=== PATIENT | female | born 1995 | race Two or more races ===

== ENCOUNTER 2024-10-15 21:49 | Inpatient (IN) | payer OTHER ==
[~2024-10-15] VITALS: Ht 162.6 cm; Wt 76.5 kg
--- NOTE | 2024-10-15 22:12 | ED.PDOC ---
History of Present Illness HPI Comments 29 y/o wheelchair-bound female is SHERI with c/o neck pain, today. Per EMS report, patient had just returned home from her routine physical therapy appointment when she had sudden and unprovoked onset of neck pain, this evening. Patient also complains of being febrile, lately, as well. Her vitals were noted to have been stable and within normal parameters, with exception of a pulse rate in the 130's range. At time of assessment, patient reports no recent injuries, stressors, strenuous activities, or additional significant medical or surgical history, with exception of possible multiple scoliosis that is still being ruled out, currently. She also is unable to elaborate on reason on why she is wheelchair-bound, currently, at initial encounter. Patient denies any vision or speech changes, headaches, dizziness, numbness, tingling, or other associated symptoms or modifiers at this time. Chief Complaint: Neck Pain Time Seen by MD: 22:00 Reviewed Notes: Nurses Notes, Rivet Spinner Notes, Medications, Allergies Allergies: Coded Allergies: NO KNOWN ALLERGIES (Unverified , 10/15/24) Information Source: Patient, Emergency Med Personnel Mode of Arrival: EMS Severity: Moderate Timing: Hours Duration: Since onset Prehospital treatment: 12 Lead EKG, Venetian Blind Maker Past Medical History PAST MEDICAL HISTORY: Denies Surgical History: Denies all surgeries WATCH GUARD GATE History: Denies all WATCH GUARD GATE Hx Family History Family History: Unknown Social History Smoker: Non-Smoker Alcohol: Denies ETOH Use Drugs: Denies Drug Use Lives In: Home Other wheel-chair bound All Other Systems: Reviewed and Negative (Comprehensive systems review obtained and negative except for what is stated in the HPI.) Physical Exam General Appearance: No Apparent Distress, Normal, Other (wheelchair bound ) HEENT: Normal ENT Inspection, Pharynx Normal, TMs Normal Neck: Full Range of Motion, Normal, Normal Inspection, Other (right-neck tenderness ) Respiratory: Chest Non-Tender, Lungs Clear, No Accessory Muscle Use, No Respiratory Distress, Normal Breath Sounds Cardiovascular: No Edema, No JVD, No Murmur, No Gallop, Normal Peripheral Pulses, Regular Rate/Rhythm Breast Exam: Deferred Gastrointestinal: No Organomegaly, Non Tender, No Pulsatile Mass, Normal Bowel Sounds, Soft Genitalia: Deferred Pelvic: Deferred Rectal: Deferred Extremities: No calf tenderness, Normal capillary refill, Normal inspection, Normal range of motion, Non-tender, No pedal edema Musculoskeletal : Apperance: Normal Neurologic: Alert, career based intervention coordinator II-XII nml as Tested, No Motor Deficits, Normal Affect, Normal Mood, No Sensory Deficits Cerebellar Function: Normal Reflexes: Normal Skin: Dry, Normal Color, Warm Lymphatic: No Adenopathy Was a procedure done? Was a procedure done?: No Differential Dx Considerations may include: musculoskeletal pain, dislocation, fractures, contusion, DDD, among others X-Ray, Labs, Meds, VS Vital Signs Date Time Temp Pulse Resp B/P (MAP) Pulse Ox O2 Delivery O2 Flow Rate FiO2 10/16/24 03:00 91 17 99/67 (78) 96 10/16/24 01:00 98.4 119 18 138/86 (103) 97 98.4 10/15/24 23:10 99.5 10/15/24 23:00 99.5 101 19 118/84 (95) 96 99.5 10/15/24 23:00 101 19 96 Room Air* 0 21 10/15/24 21:59 100.8 115 20 116/83 (94) 96 100.8 Lab Test 10/16/24 01:24 10/15/24 22:55 10/15/24 22:14 Range/Units Urine Color Light-orange Yellow Urine Clarity Ex.turbid Clear Urine pH 7.0 5.0-9.0 Urine Specific [place] 1.017 1.001-1.035 Urine Protein 1+ H Negative Urine Ketones 1+ H Negative Urine Blood Negative Negative /uL Urine Nitrite 1+ H Negative Urine Bilirubin Negative Negative Urine Urobilinogen Normal Negative mg/dL Urine Leukocyte Esterase 3+ Negative /uL Urine RBC 8 0 - 4 /hpf Urine Microscopic WBC 119 H 0-5 /HPF Urine Squamous Epithelial Cells None seen <5 /hpf Urine Triple Phosphate Crystals Mod None Seen /hpf Urine Amorphous Crystals Few None Seen /hpf Urine Bacteria Many H None Seen /hpf Urine Mucus Few None Seen Urine Glucose Normal Normal mg/dL Lactic Acid Level 1.0 0.4-2.0 mmol/L White Blood Count 24.3 H 4.4-10.8 10^3/uL Red Blood Count 4.82 4.0-5.20 10^6/uL Hemoglobin 13.3 12.2-16.2 g/dL Hematocrit 40.0 36.0-46.0 % Mean Corpuscular Volume 83.0 80.0-100.0 fL Mean Corpuscular Hemoglobin 27.6 L 28.0-32.0 pg Mean Corpuscular Hemoglobin Concent 33.3 32.0-36.0 g/dL Red Cell Distribution Width 12.9 11.8-14.3 % Platelet Count 302 140-450 10^3/uL Mean Platelet Volume 7.1 6.9-10.8 fL Neutrophils (%) (Auto) 95.1 H 37.0-80.0 % Lymphocytes (%) (Auto) 1.3 L 10.0-50.0 % Monocytes (%) (Auto) 3.5 0.0-12.0 % Eosinophils (%) (Auto) 0.0 0.0-7.0 % Basophils (%) (Auto) 0.1 0.0-2.0 % Neutrophils # (Auto) 23.1 H 1.6-8.6 10 ^3/uL Lymphocytes # (Auto) 0.3 L 0.4-5.4 10 ^3/uL Monocytes # (Auto) 0.8 0-1.3 10 ^3/uL Eosinophils # (Auto) 0 0-0.8 10 ^3/uL Basophils # (Auto) 0 0-0.2 10 ^3/uL Nucleated Red Blood Cells 0.0 % Sodium Level 142 136-145 mmol/L Potassium Level 4.0 3.5-5.1 mmol/L Chloride Level 107 98-107 mmol/L Carbon Dioxide Level 23 20-31 mmol/L Anion Gap 12 5-15 Blood Urea Nitrogen 11 9-23 mg/dL Creatinine 0.75 0.550-1.02 mg/dL Glomerular Filtration Rate Calc 110 >90 mL/min BUN/Creatinine Ratio 14.7 10.0-20.0 Serum Glucose 116 H 74-106 mg/dL Calcium Level 9.3 8.7-10.4 mg/dL Current Medications Medications (Trade) Dose Ordered Sig/Johana Route Start Time Stop Time Status Last Admin Sodium Chloride 1,000 ml @ 1,000 mls/hr Q1H ONCE IV 10/15/24 22:15 10/15/24 23:14 DC 10/15/24 23:11 Diazepam (Valium Tablet) 2 mg ONCE ONCE PO 10/15/24 22:15 10/15/24 22:16 DC 10/15/24 23:10 Acetaminophen (Tylenol Tablet) 650 mg ONCE ONCE PO 10/15/24 22:15 10/15/24 22:16 DC 10/15/24 23:10 Sodium Chloride 1,000 ml @ 1,000 mls/hr Q1H ONCE IV 10/15/24 23:00 10/16/24 00:58 DC 10/15/24 23:15 Vancomycin HCl 200 ml @ 200 mls/hr ONCE ONCE IV 10/15/24 23:00 10/16/24 00:58 DC 10/15/24 23:09 Time of 1ST Reevaluation: 22:30 Reevaluation 1ST: Unchanged Patient Education/Counseling: Diagnosis, Treatment Family Education/Counseling: No Family Present Additional Information Previous visit documents reviewed: n/a The following tests were ordered, and results were reviewed by me: CBC, BMP Additional Information was gathered from interviewing the following independent historians: EMS I reviewed and agreed with the following test results read by other providers: n/a I discussed treatment and results with medical personnel and: Patient Departure 1 Departure Time of Disposition: 04:16 (Patient presenting with signs symptoms concerning for sepsis. In my judgment the patient is not meningitic. We will empirically cover patient with fluids and antibiotics and admit patient for further workup and expert consultation) Impression: Primary Impression: Sepsis Qualified Codes: A41.9 - Sepsis, unspecified organism Additional Impression: Generalized weakness Disposition: 09 ADMITTED INPATIENT Admit to: Med Surg Condition: Serious Critical Care Note Critical Care Time?: No Stability Stability form required: No Heart Score Heart Score: Heart Score Response (Comments) Value History N/A 0 EKG N/A 0 Age N/A 0 Risk Factors N/A 0 Troponin N/A 0 Total 0 I personally scribed for NOA LYNNE MD ([email or web address]) on 10/15/24 at 22:12. Electronically submitted by Geoff Garcia [email or web address]). NOA LYNNE MD Oct 15, 2024 22:12
[2024-10-15 22:29] LABS: Basophils # (auto) 0 10 ^3/uL (0-0.2); Basophils % (auto) 0.1 % (0.0-2.0); Eosinophils # (auto) 0 10 ^3/uL (0-0.8); Hemoglobin 13.3 g/dL (12.2-16.2); Lymphocytes # (auto) 0.3 10 ^3/uL (0.4-5.4); Lymphocytes % (auto) 1.3 % (10.0-50.0); Mean Corpuscular Hemoglobin 27.6 pg (28.0-32.0); Mean Corpuscular Hgb Conc. 33.3 g/dL (32.0-36.0); Monocytes # (auto) 0.8 10 ^3/uL (0-1.3); Monocytes % (auto) 3.5 % (0.0-12.0); Neutrophils # (auto) 23.1 10 ^3/uL (1.6-8.6); Neutrophils % (auto) 95.1 % (37.0-80.0); Platelet Count (auto) 302 10^3/uL (140-450); Red Blood Cells 4.82 10^6/uL (4.0-5.20); Red Cell Distribution Width 12.9 % (11.8-14.3); White Blood Cell 24.3 10^3/uL (4.4-10.8)
[2024-10-15 22:36] LABS: Chloride 107 mmol/L (98-107); Sodium 142 mmol/L (136-145)
[2024-10-15 22:37] LABS: Anion Gap 12 (5-15); Carbon Dioxide 23 mmol/L (20-31)
[2024-10-15 22:38] LABS: Calcium 9.3 mg/dL (8.7-10.4)
[2024-10-15 22:43] LABS: BUN/Creatinine Ratio 14.7 (10.0-20.0); Blood Urea Nitrogen 11 mg/dL (9-23)
[2024-10-15 22:45] LABS: Glucose 116 mg/dL (74-106)
[2024-10-15 23:00] VITALS: PULSE 101; RESP 19; O2SAT 96
[2024-10-15] MEDS: VANCOMYCIN 1GM/250ML KIT 200 ML IV ONE (23:09)
[2024-10-15] MEDS: diazePAM 2 MG TAB PO ONE (23:10)
[2024-10-15] MEDS: ACETAMINOPHEN 325 MG TAB PO ONE (23:10)
[2024-10-15] MEDS: SODIUM CHLORIDE 0.9% 1,000 ML IV ONE ×2 (23:11→23:15)
[2024-10-16] MEDS: CEFEPIME 2GM/50ML NS 50 ML IV ONE (00:15)
[2024-10-16] MEDS: diphenhdrAMINE HCL 50 MG/1 ML VL ONE (00:27)
[2024-10-16] MEDS: diphenhdrAMINE HCL 50 MG/1 ML VL IV ONE (00:28)
[2024-10-16] MEDS: KETOROLAC TROMETH 30 MG/ML 1ML VIAL ONE (02:02)
[2024-10-16] MEDS: KETOROLAC TROMETH 30 MG/ML 1ML VIAL IV ONE (02:05)
[2024-10-16 02:09] LABS: Urine Amorphous Crystal FEW /hpf (None Seen); Urine Bacteria MANY /hpf (None Seen); Urine Blood Negative /uL (Negative); Urine Clarity Ex.Turbid (Clear); Urine Color Light-Orange (Yellow); Urine Mucus FEW (None Seen); Urine Protein, UAD 1+ (Negative); Urine Specific Gravity 1.017 (1.001-1.035); Urine Squamous Epithelial Cell None Seen /hpf (<5); Urine Urobilinogen Normal (Negative); Urine WBC 119 /HPF (0-5)
[2024-10-16] MEDS ORDERED: ONDANSETRON HCL 4 MG/2 ML VIAL IV PRN (08:15)
[2024-10-16] MEDS ORDERED: ACETAMINOPHEN 325 MG TAB PO PRN (08:15)
--- NOTE | 2024-10-16 08:36 | DVHHP2 ---
History of Present Illness Reason for Visit: Neck pain History of Present Illness Ele Cuellar is a 29-year-old female with past medical history of possible MS, who came to the hospital for neck pain. Patient is currently wheelchair bound, she lives with her Mom, who cares for her. Her Mom uses a Reid lift at home to get her in and out of bed to her wheelchair. Mom states that she has been diagnosed with MS, however the patient doesn't believe it. She states her symptoms began after receiving vaccinations. For the past couple of years the patient has been declining physically. She was in the [employer], so all her care is through the [facility]. Yesterday, she went to her OT appointment and on the way home her neck began to hurt. The pain increased prompting her to come to the hospital. On assessment, the pain in her neck has improved, however she has a severe UTI, and will be admitted for treatment. At home the patient uses a brief and Mom straight caths her in the morning and in the evening. MANAGER DECISION SUPPORT: Other (Possible MS) Past Surgical History: None Smoke: No ALCOHOL: none Drugs: None Lives: with Family Domestic Violence: Neg Review of Systems Constitutional: No: Fever, Chills, Sweats, Weakness, Malaise, Other Eyes: No: Pain, Vision change, Conjunctivae inflammation, Eyelid inflammation, Other, Redness ENT: No: Ear pain, Ear discharge, Nose pain, Nose discharge, Nose congestion, Mouth pain, Mouth swelling, Throat pain, Throat swelling, Other Respiratory: No: Cough, Dry, Shortness of breath, SOB with excertion, Wheezing, Hemoptysis, Pleuritic Pain, Sputum, Wheezing, Other Cardiovascular: No: Chest Pain, Palpitations, Orthopnea, Paroxysmal Noc. Dyspnea, Edema, Lt Headedness, Other Gastrointestinal: No: Nausea, Vomiting, Abdominal Pain, Diarrhea, Constipation, Melena, Hematochezia, Other Genitourinary: No Dysuria, No Frequency, No Incontinence, No Hematuria, No Retention, No Other Musculoskeletal: neck pain; No: other, shoulder pain, arm pain, back pain, hand pain, leg pain, foot pain Skin: No: Rash, Lesions, Jaundice, Bruising, Other Neurological: No: Weakness, Numbness, Incoordination, Change in speech, Confusion, Seizures, Other Allergies: Coded Allergies: NO KNOWN ALLERGIES (Unverified , 10/15/24) Medications Current Medications Medications Dose Ordered Sig/Johana Route Start Time Stop Time Status Last Admin Dose Admin Acetaminophen/ Hydrocodone Bitart 1 tab Q4HP PRN PO 10/16/24 08:15 UNV Ondansetron HCl 4 mg Q4HP PRN IV 10/16/24 08:15 UNV Docusate Sodium 100 mg BIDPRN PRN PO 10/16/24 08:15 UNV Acetaminophen 650 mg Q6HP PRN PO 10/16/24 08:15 UNV Ceftriaxone Sodium 50 ml @ 100 mls/hr DAILY@09 IV 10/16/24 09:00 UNV Exam Vital Signs Vital Signs Date Time Temp Pulse Resp B/P (MAP) Pulse Ox O2 Delivery O2 Flow Rate FiO2 10/16/24 08:00 98.3 107 18 119/77 (91) 95 98.3 10/15/24 23:00 Room Air* 0 21 General Appearance: Alert, Oriented X3, Cooperative, moderate distress HEENT: Atraumatic, PERRLA, Mucous membr. moist/pink Respiratory: Clear to auscultation, Normal air movement Cardiovascular: Regular rate, Normal S1, Normal S2, No murmurs Abdominal: Normal bowel sounds, Soft, No tenderness Extremities: No clubbing, No cyanosis, No edema, Normal pulses Skin: No rashes, No breakdown, No significant lesion Neuro: Other (Wheelchair bound at baseline, speech delayed at baseline) Psych/Mental Status: Mental status NL, Mood NL Labs/Xrays Labs Test 10/16/24 01:24 10/15/24 22:55 10/15/24 22:14 Range/Units Urine Color Light-orange Yellow Urine Clarity Ex.turbid Clear Urine pH 7.0 5.0-9.0 Urine Specific [place] 1.017 1.001-1.035 Urine Protein 1+ H Negative Urine Ketones 1+ H Negative Urine Blood Negative Negative /uL Urine Nitrite 1+ H Negative Urine Bilirubin Negative Negative Urine Urobilinogen Normal Negative mg/dL Urine Leukocyte Esterase 3+ Negative /uL Urine RBC 8 0 - 4 /hpf Urine Microscopic WBC 119 H 0-5 /HPF Urine Squamous Epithelial Cells None seen <5 /hpf Urine Triple Phosphate Crystals Mod None Seen /hpf Urine Amorphous Crystals Few None Seen /hpf Urine Bacteria Many H None Seen /hpf Urine Mucus Few None Seen Urine Glucose Normal Normal mg/dL Lactic Acid Level 1.0 0.4-2.0 mmol/L White Blood Count 24.3 H 4.4-10.8 10^3/uL Red Blood Count 4.82 4.0-5.20 10^6/uL Hemoglobin 13.3 12.2-16.2 g/dL Hematocrit 40.0 36.0-46.0 % Mean Corpuscular Volume 83.0 80.0-100.0 fL Mean Corpuscular Hemoglobin 27.6 L 28.0-32.0 pg Mean Corpuscular Hemoglobin Concent 33.3 32.0-36.0 g/dL Red Cell Distribution Width 12.9 11.8-14.3 % Platelet Count 302 140-450 10^3/uL Mean Platelet Volume 7.1 6.9-10.8 fL Neutrophils (%) (Auto) 95.1 H 37.0-80.0 % Lymphocytes (%) (Auto) 1.3 L 10.0-50.0 % Monocytes (%) (Auto) 3.5 0.0-12.0 % Eosinophils (%) (Auto) 0.0 0.0-7.0 % Basophils (%) (Auto) 0.1 0.0-2.0 % Neutrophils # (Auto) 23.1 H 1.6-8.6 10 ^3/uL Lymphocytes # (Auto) 0.3 L 0.4-5.4 10 ^3/uL Monocytes # (Auto) 0.8 0-1.3 10 ^3/uL Eosinophils # (Auto) 0 0-0.8 10 ^3/uL Basophils # (Auto) 0 0-0.2 10 ^3/uL Nucleated Red Blood Cells 0.0 % Sodium Level 142 136-145 mmol/L Potassium Level 4.0 3.5-5.1 mmol/L Chloride Level 107 98-107 mmol/L Carbon Dioxide Level 23 20-31 mmol/L Anion Gap 12 5-15 Blood Urea Nitrogen 11 9-23 mg/dL Creatinine 0.75 0.550-1.02 mg/dL Glomerular Filtration Rate Calc 110 >90 mL/min BUN/Creatinine Ratio 14.7 10.0-20.0 Serum Glucose 116 H 74-106 mg/dL Calcium Level 9.3 8.7-10.4 mg/dL Assessment/Plan Assessment/Plan Assessment: Sepsis due to urinary tract infection, leukocytosis, Possible MS, Plan: Admit to Tele, IV antibiotics, IV hydration, Blood cultures, Urine cultures, Chest X-ray, Plan discussed with: Patient My Orders Orders - MARCELO NEGRETE Procedure Category Date Status Time Admit ADMIT 10/16/24 Transmitted 08:15 Code Status CODE 10/16/24 Transmitted 08:15 Hydrocodone-Acet PHA 10/16/24 Logged 5/325mg Tab (Mead 08:15 Ondansetron Hcl PHA 10/16/24 Logged (Zofran) 08:15 Docusate Sodium PHA 10/16/24 Logged Capsule (Colace 08:15 Complete Blood Count LAB 10/17/24 Verified 04:00 Comprehensive LAB 10/17/24 Verified Metabolic Panel 04:00 Condition: Serious MARGARET 10/16/24 In Process 08:15 Acetaminophen Tablet PHA 10/16/24 Logged (Tylenol Tablet) 08:15 Ceftriaxone 1gm/50ml PHA 10/16/24 Logged D5w (Rocephin) 09:00 Date of Service: Oct 16, 2024 Billing Provider: MARCELO NEGRETE Common Visit Codes: 25300-JSBACVG INP/OBS CARE (HIGH) MARCELO NEGRETE Oct 16, 2024 08:36
[2024-10-16] MEDS: cefTRIAXone 1GM/50ML D5W 50 ML IV SCH (08:54)
--- NOTE | 2024-10-16 09:31 | DVH ---
EXAM: XY CHEST PORTABLE Indication: Short of breath Technique: Single frontal view of the chest was obtained Comparison: None FINDINGS: Lines and Tubes: None Lungs: No focal consolidation. Pleura: No effusion. No pneumothorax. Cardiomediastinal contours: Unremarkable Bones: No acute osseous abnormality. IMPRESSION: No acute cardiopulmonary disease.
[2024-10-16] MEDS: SODIUM CHLORIDE 0.9% 1,000 ML IV ONE (10:16)
--- NOTE | 2024-10-16 13:52 | DVH ---
US KIDNEY HISTORY: complicated cystitis COMPARISON: None TECHNIQUE: Transverse and longitudinal grayscale and color Doppler images were obtained of the kidney s and bladder. FINDINGS: Right kidney: Size: 10.0 cm Cortical thickness: Normal Echogenicity: Normal Stones: None Masses: None Hydronephrosis: None Ureters: Not well visualized. Other: None Left kidney: Size: 9.7 cm Cortical thickness: Normal Echogenicity: Normal Stones: None Masses: None Hydronephrosis: None Ureters: Not well visualized. Other: None Bladder: Decompressed with a Miramontes catheter. Other: None. IMPRESSION: Normal renal ultrasound. Decompressed bladder with a Miramontes catheter.
--- NOTE | 2024-10-16 16:08 | DVHPN2 ---
Subjective Patient reports that she was increase in neck pain. Reviewed: Care Plan, H&P, Labs, Medications, Previous Orders Changes from previous H/P or p: No Changes General: Per HPI Eyes: No Pain, No Vision change, No Conjunctivae inflammation, No Eyelid inflammation, No Other, No Redness ENT: No Ear pain, No Ear discharge, No Nose pain, No Nose discharge, No Nose congestion, No Mouth pain, No Mouth swelling, No Throat pain, No Throat swelling, No Other Cardiovascular: No Chest Pain, No Palpitations, No Orthopnea, No Paroxysmal Noc. Dyspnea, No Edema, No Lt Headedness, No Other Respiratory: No Cough, No Dry, No Shortness of breath, No SOB with excertion, No Wheezing, No Hemoptysis, No Pleuritic Pain, No Sputum, No Other Gastrointestinal: No Nausea, No Vomiting, No Abdominal Pain, No Diarrhea, No Constipation, No Melena, No Hematochezia, No Other Genitourinary: No Dysuria, No Frequency, No Incontinence, No Hematuria, No Retention, No Other Musculoskeletal: No other; neck pain; No shoulder pain, No arm pain, No back pain, No hand pain, No leg pain, No foot pain Skin: No Rash, No Lesions, No Jaundice, No Bruising, No Other Objective Vitals Vital Signs Date Time Temp Pulse Resp B/P (MAP) Pulse Ox O2 Delivery O2 Flow Rate FiO2 10/16/24 10:00 83 15 114/76 (89) 98 10/16/24 08:26 98.3 10/16/24 08:00 Room Air* 0 21 Intake/Output Intake and Output 10/16/24 06:59 Intake Total 2250.0 ml Balance 2250.0 ml Intake IV Total 2250.0 ml General Appearance: Alert, Oriented X3, Cooperative, mild distress HEENT: Atraumatic, PERRLA Lungs: Clear to auscultation, Normal air movement Cardiovascular: Normal S1, Normal S2 Abdomen: Normal bowel sounds, Soft, No tenderness, No hepatospenomegaly Musculoskeletal: Normal sensory function, Normal motor function Neuro: Normal speech Psych/Mental Status: Mental status NL, Mood NL Medications Current Medications Medications Dose Ordered Sig/Johana Route Start Time Stop Time Status Last Admin Dose Admin Acetaminophen/ Hydrocodone Bitart 1 tab Q4HP PRN PO 10/16/24 08:15 Ondansetron HCl 4 mg Q4HP PRN IV 10/16/24 08:15 Docusate Sodium 100 mg BIDPRN PRN PO 10/16/24 08:15 Acetaminophen 650 mg Q6HP PRN PO 10/16/24 08:15 Ceftriaxone Sodium 50 ml @ 100 mls/hr DAILY@09 IV 10/16/24 09:00 10/16/24 08:54 100 MLS/HR Laboratory Results Laboratory Tests 10/15/24 22:14 Chemistry Test 10/15/24 22:14 Calcium Level 9.3 mg/dL (8.7-10.4) Urinalysis Test 10/16/24 01:24 Urine Color Light-orange (Yellow) Urine Clarity Ex.turbid (Clear) Urine pH 7.0 (5.0-9.0) Urine Specific [place] 1.017 (1.001-1.035) Urine Protein 1+ (Negative) H Urine Ketones 1+ (Negative) H Urine Blood Negative /uL (Negative) Urine Nitrite 1+ (Negative) H Urine Bilirubin Negative (Negative) Urine Urobilinogen Normal mg/dL (Negative) Urine Leukocyte Esterase 3+ /uL (Negative) Urine RBC 8 /hpf (0 - 4) Urine Microscopic WBC 119 /HPF (0-5) H Urine Squamous Epithelial Cells None seen /hpf (<5) Urine Triple Phosphate Crystals Mod /hpf (None Seen) Urine Amorphous Crystals Few /hpf (None Seen) Urine Bacteria Many /hpf (None Seen) H Urine Mucus Few (None Seen) Urine Glucose Normal mg/dL (Normal) Labs and/or images reviewed: Labs reviewed by me, Image(s) reviewed by me Assessment/Plan Assessment/Plan Impression: -sepsis -complicated cystitis -history of MS Plan: -continue antibiotic therapy -blood and urine culture -pain management -IV hydration -repeat labs in a.m. -renal ultrasound: Report reviewed and discussed with patient and mother. -plan of care discussed with patient and mother was bedside. Total time spent with patient discussing and formulating plan of care: 35 minutes. Total time spent with patient and family regarding advance care plannin minutes. This medical document was created using an electronic medical record system with [employer] system. Although this document has been carefully reviewed, there may still be some phonetic and typographical errors. These areas are purely typographical due to imperfections of the software programs, and do not reflect any compromise in the patient's medical care. Plan discussed with: Patient, Other (RN, mother) My Orders Orders - JEMIMA KENDALL NP Procedure Category Date Status Time Kidney US 10/16/24 Resulted 13:04 Date of Service: Oct 16, 2024 Billing Provider: JEMIMA KENDALL NP Common Visit Codes: 99507-LHI/OBS SAME DATE (HIGH) Secondary Visit Codes: 18907-[id number] CARE PLAN 30 MINUTES JEMIMA KENDALL NP Oct 16, 2024 16:08
[2024-10-16 23:59] VITALS: BP 124/83; PULSE 93; RESP 17; TEMP 98.3; O2SAT 98
[2024-10-17] VITALS (8 sets, daily range): BP systolic 114–132; BP diastolic 66–79; PULSE 91–106; RESP 16–20; TEMP 97.9–98.8; O2SAT 97–100
[2024-10-17 07:23] LABS: Basophils # (auto) 0 10 ^3/uL (0-0.2); Basophils % (auto) 0.3 % (0.0-2.0); Eosinophils # (auto) 0.2 10 ^3/uL (0-0.8); Eosinophils % (auto) 1.7 % (0.0-7.0); Hematocrit 32.9 % (36.0-46.0); Hemoglobin 11.1 g/dL (12.2-16.2); Lymphocytes # (auto) 1.5 10 ^3/uL (0.4-5.4); Lymphocytes % (auto) 13.2 % (10.0-50.0); Mean Corpuscular Hemoglobin 28.3 pg (28.0-32.0); Mean Corpuscular Hgb Conc. 33.9 g/dL (32.0-36.0); Mean Corpuscular Volume 83.4 fL (80.0-100.0); Monocytes # (auto) 0.5 10 ^3/uL (0-1.3); Monocytes % (auto) 4.4 % (0.0-12.0); Neutrophils # (auto) 8.9 10 ^3/uL (1.6-8.6); Neutrophils % (auto) 80.4 % (37.0-80.0); Platelet Count (auto) 270 10^3/uL (140-450); Red Blood Cells 3.94 10^6/uL (4.0-5.20); Red Cell Distribution Width 12.9 % (11.8-14.3); White Blood Cell 11.1 10^3/uL (4.4-10.8)
[2024-10-17 07:33] LABS: Alanine Aminotransferase 11 U/L (7-40); Albumin 3.7 g/dL (3.2-4.8); Alkaline Phosphatase 60 U/L (46-116); Anion Gap 7 (5-15); Aspartate Aminotransferase 19 U/L (13-40); BUN/Creatinine Ratio 15.1 (10.0-20.0); Blood Urea Nitrogen 8 mg/dL (9-23); Calcium 8.7 mg/dL (8.7-10.4); Carbon Dioxide 23 mmol/L (20-31); Chloride 110 mmol/L (98-107); Glucose 90 mg/dL (74-106); Potassium 3.6 mmol/L (3.5-5.1); Sodium 140 mmol/L (136-145); Total Protein 5.8 g/dL (5.7-8.2)
[2024-10-17 07:34] LABS: Bilirubin, Total 0.5 mg/dL (0.2-1.0)
--- NOTE | 2024-10-17 09:18 | DVHPN2 ---
Subjective Patient reports that she was generalized fatigue Reviewed: Care Plan, H&P, Labs, Medications, Previous Orders Changes from previous H/P or p: No Changes General: Per HPI Eyes: No Pain, No Vision change, No Conjunctivae inflammation, No Eyelid inflammation, No Other, No Redness ENT: No Ear pain, No Ear discharge, No Nose pain, No Nose discharge, No Nose congestion, No Mouth pain, No Mouth swelling, No Throat pain, No Throat swelling, No Other Cardiovascular: No Chest Pain, No Palpitations, No Orthopnea, No Paroxysmal Noc. Dyspnea, No Edema, No Lt Headedness, No Other Respiratory: No Cough, No Dry, No Shortness of breath, No SOB with excertion, No Wheezing, No Hemoptysis, No Pleuritic Pain, No Sputum, No Other Gastrointestinal: No Nausea, No Vomiting, No Abdominal Pain, No Diarrhea, No Constipation, No Melena, No Hematochezia, No Other Genitourinary: No Dysuria, No Frequency, No Incontinence, No Hematuria, No Retention, No Other Musculoskeletal: No other; neck pain; No shoulder pain, No arm pain, No back pain, No hand pain, No leg pain, No foot pain Skin: No Rash, No Lesions, No Jaundice, No Bruising, No Other Objective Vitals Vital Signs Date Time Temp Pulse Resp B/P (MAP) Pulse Ox O2 Delivery O2 Flow Rate FiO2 10/17/24 08:00 18 Room Air* 0 21 10/17/24 05:00 98.3 91 114/79 (91) 97 98.3 Intake/Output Intake and Output 10/17/24 07:00 Intake Total 1250 ml Output Total 2275 ml Balance -1025 ml Intake Oral 200 ml IV Total 1050 ml Output Urine Total 2275 ml General Appearance: Alert, Oriented X3, Cooperative, mild distress HEENT: Atraumatic, PERRLA Lungs: Clear to auscultation, Normal air movement Cardiovascular: Normal S1, Normal S2 Abdomen: Normal bowel sounds, Soft, No tenderness, No hepatospenomegaly Musculoskeletal: Normal sensory function, Normal motor function Neuro: Normal speech Skin: Dry, Intact Psych/Mental Status: Mental status NL, Mood NL Medications Current Medications Medications Dose Ordered Sig/Johana Route Start Time Stop Time Status Last Admin Dose Admin Acetaminophen/ Hydrocodone Bitart 1 tab Q4HP PRN PO 10/16/24 08:15 Ondansetron HCl 4 mg Q4HP PRN IV 10/16/24 08:15 Docusate Sodium 100 mg BIDPRN PRN PO 10/16/24 08:15 Acetaminophen 650 mg Q6HP PRN PO 10/16/24 08:15 Ceftriaxone Sodium 50 ml @ 100 mls/hr DAILY@09 IV 10/16/24 09:00 10/17/24 09:10 100 MLS/HR Laboratory Results Laboratory Tests 10/17/24 05:43 Chemistry Test 10/17/24 05:43 Albumin 3.7 g/dL (3.2-4.8) Calcium Level 8.7 mg/dL (8.7-10.4) Total Protein 5.8 g/dL (5.7-8.2) LFT Test 10/17/24 05:43 Alanine Aminotransferase (ALT) 11 U/L (7-40) Alkaline Phosphatase 60 U/L (46-116) Aspartate Amino Transferase (AST) 19 U/L (13-40) Total Bilirubin 0.5 mg/dL (0.2-1.0) Urinalysis Test 10/16/24 01:24 Urine Color Light-orange (Yellow) Urine Clarity Ex.turbid (Clear) Urine pH 7.0 (5.0-9.0) Urine Specific [place] 1.017 (1.001-1.035) Urine Protein 1+ (Negative) H Urine Ketones 1+ (Negative) H Urine Blood Negative /uL (Negative) Urine Nitrite 1+ (Negative) H Urine Bilirubin Negative (Negative) Urine Urobilinogen Normal mg/dL (Negative) Urine Leukocyte Esterase 3+ /uL (Negative) Urine RBC 8 /hpf (0 - 4) Urine Microscopic WBC 119 /HPF (0-5) H Urine Squamous Epithelial Cells None seen /hpf (<5) Urine Triple Phosphate Crystals Mod /hpf (None Seen) Urine Amorphous Crystals Few /hpf (None Seen) Urine Bacteria Many /hpf (None Seen) H Urine Mucus Few (None Seen) Urine Glucose Normal mg/dL (Normal) Microbiology Microbiology Date/Time Source Procedure Growth Status 10/15/24 23:00 Blood Blood Culture - Preliminary NO GROWTH AFTER 24 HOURS OF INCUBATION. Resulted Labs and/or images reviewed: Labs reviewed by me, Image(s) reviewed by me Assessment/Plan Assessment/Plan Impression: -sepsis -complicated cystitis -history of MS Plan: Events: No events overnight. Patient remains afebrile. Patient reports fatigue today. -continue Rocephin -blood and urine culture: Urine culture pending. Blood culture without any growth at this time. -pain management -PPI -repeat labs in a.m. Total time spent with patient discussing and formulating plan of care: 35 minutes. This medical document was created using an electronic medical record system with [employer] dictation system. Although this document has been carefully reviewed, there may still be some phonetic and typographical errors. These areas are purely typographical due to imperfections of the software programs, and do not reflect any compromise in the patient's medical care. Plan discussed with: Patient, Other (RN) My Orders Orders - JEMIMA KENDALL NP Procedure Category Date Status Time Kidney US 10/16/24 Resulted 13:04 Date of Service: Oct 17, 2024 Billing Provider: JEMIMA KENDALL NP Common Visit Codes: [id number] INP/OBS CARE(HIGH) JEMIMA KENDALL NP Oct 17, 2024 09:18
[2024-10-18] VITALS (8 sets, daily range): BP systolic 115–133; BP diastolic 70–84; PULSE 99–111; RESP 16–18; TEMP 98.1–99.4; O2SAT 94–98
[2024-10-18] MEDS: HYDROcodone-ACET 5/325MG TAB PO PRN (04:54)
[2024-10-18] MEDS: PANTOPRAZOLE 40 MG TAB PO SCH (04:54)
--- NOTE | 2024-10-18 11:20 | DVHPN2 ---
Subjective The patient is seen and examined at bedside. Complain of tiredness today. Reviewed: Care Plan, H&P, Labs, Medications, Previous Orders Changes from previous H/P or p: No Changes General: Per HPI Eyes: No Pain, No Vision change, No Conjunctivae inflammation, No Eyelid inflammation, No Other, No Redness ENT: No Ear pain, No Ear discharge, No Nose pain, No Nose discharge, No Nose congestion, No Mouth pain, No Mouth swelling, No Throat pain, No Throat swelling, No Other Cardiovascular: No Chest Pain, No Palpitations, No Orthopnea, No Paroxysmal Noc. Dyspnea, No Edema, No Lt Headedness, No Other Respiratory: No Cough, No Dry, No Shortness of breath, No SOB with excertion, No Wheezing, No Hemoptysis, No Pleuritic Pain, No Sputum, No Other Gastrointestinal: No Nausea, No Vomiting, No Abdominal Pain, No Diarrhea, No Constipation, No Melena, No Hematochezia, No Other Genitourinary: No Dysuria, No Frequency, No Incontinence, No Hematuria, No Retention, No Other Musculoskeletal: No other; neck pain; No shoulder pain, No arm pain, No back pain, No hand pain, No leg pain, No foot pain Skin: No Rash, No Lesions, No Jaundice, No Bruising, No Other Objective Vitals Vital Signs Date Time Temp Pulse Resp B/P (MAP) Pulse Ox O2 Delivery O2 Flow Rate FiO2 10/18/24 09:00 98.7 111 17 120/70 (87) 98 98.7 10/18/24 08:00 Room Air* 0 21 Intake/Output Intake and Output 10/18/24 07:00 Intake Total 530 ml Output Total 1450 ml Balance -920 ml Intake Oral 480 ml IV Total 50 ml Output Urine Total 1450 ml General Appearance: Alert, Oriented X3, Cooperative, mild distress HEENT: Atraumatic, PERRLA Lungs: Clear to auscultation, Normal air movement Cardiovascular: Normal S1, Normal S2 Abdomen: Normal bowel sounds, Soft, No tenderness, No hepatospenomegaly Musculoskeletal: Normal sensory function, Normal motor function Neuro: Normal speech Skin: Dry, Intact Psych/Mental Status: Mental status NL, Mood NL Medications Current Medications Medications Dose Ordered Sig/Johana Route Start Time Stop Time Status Last Admin Dose Admin Acetaminophen/ Hydrocodone Bitart 1 tab Q4HP PRN PO 3/26/25 08:15 10/18/24 11:08 1 TAB Ondansetron HCl 4 mg Q4HP PRN IV 10/16/24 08:15 Docusate Sodium 100 mg BIDPRN PRN PO 10/16/24 08:15 Acetaminophen 650 mg Q6HP PRN PO 10/16/24 08:15 Ceftriaxone Sodium 50 ml @ 100 mls/hr DAILY@09 IV 10/16/24 09:00 10/18/24 09:28 100 MLS/HR Pantoprazole Sodium 40 mg DAILY@0600 PO 10/18/24 06:00 10/18/24 04:54 40 MG Laboratory Results Laboratory Tests 10/17/24 05:43 Urinalysis Test 10/16/24 01:24 Urine Color Light-orange (Yellow) Urine Clarity Ex.turbid (Clear) Urine pH 7.0 (5.0-9.0) Urine Specific [place] 1.017 (1.001-1.035) Urine Protein 1+ (Negative) H Urine Ketones 1+ (Negative) H Urine Blood Negative /uL (Negative) Urine Nitrite 1+ (Negative) H Urine Bilirubin Negative (Negative) Urine Urobilinogen Normal mg/dL (Negative) Urine Leukocyte Esterase 3+ /uL (Negative) Urine RBC 8 /hpf (0 - 4) Urine Microscopic WBC 119 /HPF (0-5) H Urine Squamous Epithelial Cells None seen /hpf (<5) Urine Triple Phosphate Crystals Mod /hpf (None Seen) Urine Amorphous Crystals Few /hpf (None Seen) Urine Bacteria Many /hpf (None Seen) H Urine Mucus Few (None Seen) Urine Glucose Normal mg/dL (Normal) Microbiology Microbiology Date/Time Source Procedure Growth Status 10/16/24 01:24 Urine - Catheterized Urine Culture - Preliminary Resulted 10/15/24 23:00 Blood Blood Culture - Preliminary NO GROWTH AFTER 48 HOURS OF INCUBATION. Resulted Labs and/or images reviewed: Labs reviewed by me Assessment/Plan Assessment/Plan -sepsis -complicated cystitis -history of MS Plan: Continuing current management. Continuing with IV antibiotic Rocephin. So far culture showed no growth. Continuing with pain medication. Continuing with PPI Discharge planning. Plan discussed with: Patient Date of Service: Oct 18, 2024 Billing Provider: CARMITA CERON MD Common Visit Codes: [id number] INP/OBS CARE(HIGH) CARMITA CERON MD Oct 18, 2024 11:20
[2024-10-19] VITALS (8 sets, daily range): BP systolic 114–132; BP diastolic 71–80; PULSE 93–108; RESP 15–17; TEMP 97.9–99.7; O2SAT 95–97
[2024-10-19] MEDS: ASCORBIC ACID 500 MG TAB PO SCH (10:37)
[2024-10-19] MEDS: Pro-Stat SF 30ml Vanilla PO SCH (13:17)
[2024-10-19 18:41] LABS: Urine Amorphous Crystal MOD /hpf (None Seen); Urine Bacteria FEW /hpf (None Seen); Urine Blood 2+ /uL (Negative); Urine Clarity Ex.Turbid (Clear); Urine Color Yellow (Yellow); Urine Mucus FEW (None Seen); Urine Protein, UAD 1+ (Negative); Urine Specific Gravity 1.027 (1.001-1.035); Urine Squamous Epithelial Cell FEW /hpf (<5); Urine Urobilinogen Normal (Negative); Urine WBC 33 /HPF (0-5); Urine pH 6.5 (5.0-9.0)
[2024-10-19] MEDS: Ensure Enlive Vanilla 8oz Bottle PO SCH (19:05)
--- NOTE | 2024-10-19 22:53 | DVHPN2 ---
Subjective The patient is seen and examined at bedside. Complain of tiredness today. Mom on the phone and want to talk to me. Reviewed: Care Plan, H&P, Labs, Medications, Previous Orders Changes from previous H/P or p: No Changes General: Per HPI Eyes: No Pain, No Vision change, No Conjunctivae inflammation, No Eyelid inflammation, No Other, No Redness ENT: No Ear pain, No Ear discharge, No Nose pain, No Nose discharge, No Nose congestion, No Mouth pain, No Mouth swelling, No Throat pain, No Throat swelling, No Other Cardiovascular: No Chest Pain, No Palpitations, No Orthopnea, No Paroxysmal Noc. Dyspnea, No Edema, No Lt Headedness, No Other Respiratory: No Cough, No Dry, No Shortness of breath, No SOB with excertion, No Wheezing, No Hemoptysis, No Pleuritic Pain, No Sputum, No Other Gastrointestinal: No Nausea, No Vomiting, No Abdominal Pain, No Diarrhea, No Constipation, No Melena, No Hematochezia, No Other Genitourinary: No Dysuria, No Frequency, No Incontinence, No Hematuria, No Retention, No Other Musculoskeletal: No other; neck pain; No shoulder pain, No arm pain, No back pain, No hand pain, No leg pain, No foot pain Skin: No Rash, No Lesions, No Jaundice, No Bruising, No Other Objective Vitals Vital Signs Date Time Temp Pulse Resp B/P (MAP) Pulse Ox O2 Delivery O2 Flow Rate FiO2 10/19/24 20:45 98.5 94 17 126/71 (89) 95 98.5 10/19/24 08:00 Room Air* 0 21 Intake/Output Intake and Output 10/19/24 07:00 Intake Total 850 ml Output Total 960 ml Balance -110 ml Intake Oral 800 ml IV Total 50 ml Output Urine Total 960 ml General Appearance: Alert, Oriented X3, Cooperative, mild distress HEENT: Atraumatic, PERRLA Lungs: Clear to auscultation, Normal air movement Cardiovascular: Normal S1, Normal S2 Abdomen: Normal bowel sounds, Soft, No tenderness, No hepatospenomegaly Musculoskeletal: Normal sensory function, Normal motor function Neuro: Normal speech Skin: Dry, Intact Psych/Mental Status: Mental status NL, Mood NL Medications Current Medications Medications Dose Ordered Sig/Johana Route Start Time Stop Time Status Last Admin Dose Admin Acetaminophen/ Hydrocodone Bitart 1 tab Q4HP PRN PO 10/16/24 08:15 10/19/24 10:37 1 TAB Ondansetron HCl 4 mg Q4HP PRN IV 10/16/24 08:15 Docusate Sodium 100 mg BIDPRN PRN PO 10/16/24 08:15 Acetaminophen 650 mg Q6HP PRN PO 10/16/24 08:15 Ceftriaxone Sodium 50 ml @ 100 mls/hr DAILY@09 IV 10/16/24 09:00 10/19/24 10:36 100 MLS/HR Pantoprazole Sodium 40 mg DAILY@0600 PO 10/18/24 06:00 10/19/24 05:09 40 MG Amino Acid Protein 30 ml BID PO 10/19/24 10:00 10/19/24 21:44 30 ML Ascorbic Acid 500 mg BID PO 10/19/24 10:00 10/19/24 21:44 500 MG Enteral Nutritional Formula 240 ml BIDWM PO 10/19/24 18:00 10/19/24 19:05 240 ML Laboratory Results Laboratory Tests 10/17/24 05:43 Urinalysis Test 10/16/24 01:24 10/19/24 18:00 Urine Triple Phosphate Crystals Mod /hpf (None Seen) Urine Color Yellow (Yellow) Urine Clarity Ex.turbid (Clear) Urine pH 6.5 (5.0-9.0) Urine Specific [place] 1.027 (1.001-1.035) Urine Protein 1+ (Negative) H Urine Ketones 2+ (Negative) H Urine Blood 2+ /uL (Negative) H Urine Nitrite Negative (Negative) Urine Bilirubin Negative (Negative) Urine Urobilinogen Normal mg/dL (Negative) Urine Leukocyte Esterase 3+ /uL (Negative) Urine RBC 63 /hpf (0 - 4) Urine Microscopic WBC 33 /HPF (0-5) H Urine Squamous Epithelial Cells Few /hpf (<5) Urine Amorphous Crystals Mod /hpf (None Seen) Urine Bacteria Few /hpf (None Seen) H Urine Mucus Few (None Seen) Urine Glucose Normal mg/dL (Normal) Microbiology Microbiology Date/Time Source Procedure Growth Status 10/18/24 13:58 Foot Left Gram Stain - Final Resulted 10/18/24 13:58 Foot Left Wound Culture - Preliminary Resulted 10/16/24 01:24 Urine - Catheterized Urine Culture - Final Escherichia coli Enterococcus faecalis Complete 10/15/24 23:00 Blood Blood Culture - Preliminary NO GROWTH AFTER 72 HOURS OF INCUBATION. Resulted Labs and/or images reviewed: Labs reviewed by me Assessment/Plan Assessment/Plan -sepsis -complicated cystitis with E.coli and Enterococcus Faeccallis. -history of MS Plan: Continuing current management. Continuing with IV antibiotic Rocephin. Urine culture show E. Coli and Enterococcus Faeccallis sensitive to rocephin. Continuing with pain medication. Continuing with PPI Discharge planning. Plan discussed with: Patient, Other (mom) My Orders Orders - CARMITA CERON MD Procedure Category Date Status Time Notify Provider NOTICE 10/19/24 Transmitted Malnutrition 08:20 Nutritional NOURISH 10/19/24 Transmitted Supplements 08:20 Amino Acids-Protein PHA 10/19/24 In Process Hydrolysat (Pro-Stat 10:00 Ascorbic Acid Tablet PHA 10/19/24 In Process (Vitamin C Tablet) 10:00 Nutritional PHA 10/19/24 In Process Supplements (Ensure 18:00 Urine Bacterial JONNY 10/19/24 Uncollected Culture 17:02 Cover Wound With Foam MARGARET 10/19/24 In Process Dressing 12:10 Date of Service: Oct 19, 2024 Billing Provider: CARMITA CERON MD Common Visit Codes: [id number] INP/OBS CARE(HIGH) CARMITA CERON MD Oct 19, 2024 22:53
[2024-10-20] VITALS (7 sets, daily range): BP systolic 113–133; BP diastolic 74–81; PULSE 59–103; RESP 16–18; TEMP 98.1–99.2; O2SAT 96–99
[2024-10-20] MEDS: DOCUSATE SOD 100 MG CAP PO PRN (05:29)
[2024-10-20 15:58] LABS: Basophils # (auto) 0 10 ^3/uL (0-0.2); Basophils % (auto) 0.5 % (0.0-2.0); Eosinophils # (auto) 0.2 10 ^3/uL (0-0.8); Eosinophils % (auto) 2.2 % (0.0-7.0); Lymphocytes # (auto) 1.3 10 ^3/uL (0.4-5.4); Lymphocytes % (auto) 17.2 % (10.0-50.0); Mean Corpuscular Hemoglobin 27.8 pg (28.0-32.0); Mean Corpuscular Hgb Conc. 34.2 g/dL (32.0-36.0); Mean Corpuscular Volume 81.2 fL (80.0-100.0); Monocytes # (auto) 0.7 10 ^3/uL (0-1.3); Monocytes % (auto) 8.5 % (0.0-12.0); Neutrophils # (auto) 5.6 10 ^3/uL (1.6-8.6); Neutrophils % (auto) 71.6 % (37.0-80.0); Nucleated Red Blood Cells % 0.1 %; Platelet Count (auto) 361 10^3/uL (140-450); Red Blood Cells 4.68 10^6/uL (4.0-5.20); Red Cell Distribution Width 12.7 % (11.8-14.3); White Blood Cell 7.8 10^3/uL (4.4-10.8)
[2024-10-20 16:00] LABS: Chloride 104 mmol/L (98-107); Potassium 4.4 mmol/L (3.5-5.1); Sodium 138 mmol/L (136-145)
[2024-10-20 16:01] LABS: Anion Gap 8 (5-15); Calcium 9.4 mg/dL (8.7-10.4); Carbon Dioxide 26 mmol/L (20-31)
[2024-10-20 16:06] LABS: BUN/Creatinine Ratio 18.5 (10.0-20.0); Blood Urea Nitrogen 12 mg/dL (9-23)
[2024-10-20 16:15] LABS: Glucose 112 mg/dL (74-106)
--- NOTE | 2024-10-20 21:05 | DVHPN2 ---
Subjective The patient is seen and examined at bedside. Feel a little bit better. Reviewed: Care Plan, H&P, Labs, Medications, Previous Orders Changes from previous H/P or p: No Changes General: Per HPI Eyes: No Pain, No Vision change, No Conjunctivae inflammation, No Eyelid inflammation, No Other, No Redness ENT: No Ear pain, No Ear discharge, No Nose pain, No Nose discharge, No Nose congestion, No Mouth pain, No Mouth swelling, No Throat pain, No Throat swelling, No Other Cardiovascular: No Chest Pain, No Palpitations, No Orthopnea, No Paroxysmal Noc. Dyspnea, No Edema, No Lt Headedness, No Other Respiratory: No Cough, No Dry, No Shortness of breath, No SOB with excertion, No Wheezing, No Hemoptysis, No Pleuritic Pain, No Sputum, No Other Gastrointestinal: No Nausea, No Vomiting, No Abdominal Pain, No Diarrhea, No Constipation, No Melena, No Hematochezia, No Other Genitourinary: No Dysuria, No Frequency, No Incontinence, No Hematuria, No Retention, No Other Musculoskeletal: No other; neck pain; No shoulder pain, No arm pain, No back pain, No hand pain, No leg pain, No foot pain Skin: No Rash, No Lesions, No Jaundice, No Bruising, No Other Objective Vitals Vital Signs Date Time Temp Pulse Resp B/P (MAP) Pulse Ox O2 Delivery O2 Flow Rate FiO2 10/20/24 17:00 98.3 103 18 113/80 (91) 98 98.3 10/20/24 08:00 Room Air* 0 21 Intake/Output Intake and Output 10/20/24 07:00 Intake Total 1250 ml Output Total 1900 ml Balance -650 ml Intake Oral 1200 ml IV Total 50 ml Output Urine Total 1900 ml General Appearance: Alert, Oriented X3, Cooperative, mild distress HEENT: Atraumatic, PERRLA Lungs: Clear to auscultation, Normal air movement Cardiovascular: Normal S1, Normal S2 Abdomen: Normal bowel sounds, Soft, No tenderness, No hepatospenomegaly Musculoskeletal: Normal sensory function, Normal motor function Neuro: Normal speech Skin: Dry, Intact Psych/Mental Status: Mental status NL, Mood NL Medications Current Medications Medications Dose Ordered Sig/Johana Route Start Time Stop Time Status Last Admin Dose Admin Acetaminophen/ Hydrocodone Bitart 1 tab Q4HP PRN PO 10/16/24 08:15 10/20/24 20:23 1 TAB Ondansetron HCl 4 mg Q4HP PRN IV 10/16/24 08:15 Docusate Sodium 100 mg BIDPRN PRN PO 10/16/24 08:15 10/20/24 05:29 100 MG Acetaminophen 650 mg Q6HP PRN PO 10/16/24 08:15 Ceftriaxone Sodium 50 ml @ 100 mls/hr DAILY@09 IV 10/16/24 09:00 10/20/24 09:00 100 MLS/HR Pantoprazole Sodium 40 mg DAILY@0600 PO 10/18/24 06:00 10/20/24 05:19 40 MG Amino Acid Protein 30 ml BID PO 10/19/24 10:00 10/19/24 21:44 30 ML Ascorbic Acid 500 mg BID PO 10/19/24 10:00 10/20/24 09:00 500 MG Enteral Nutritional Formula 240 ml BIDWM PO 10/19/24 18:00 10/20/24 17:51 240 ML Laboratory Results Laboratory Tests 10/20/24 15:26 Chemistry Test 10/20/24 15:26 Calcium Level 9.4 mg/dL (8.7-10.4) Urinalysis Test 10/16/24 01:24 10/19/24 18:00 Urine Triple Phosphate Crystals Mod /hpf (None Seen) Urine Color Yellow (Yellow) Urine Clarity Ex.turbid (Clear) Urine pH 6.5 (5.0-9.0) Urine Specific [place] 1.027 (1.001-1.035) Urine Protein 1+ (Negative) H Urine Ketones 2+ (Negative) H Urine Blood 2+ /uL (Negative) H Urine Nitrite Negative (Negative) Urine Bilirubin Negative (Negative) Urine Urobilinogen Normal mg/dL (Negative) Urine Leukocyte Esterase 3+ /uL (Negative) Urine RBC 63 /hpf (0 - 4) Urine Microscopic WBC 33 /HPF (0-5) H Urine Squamous Epithelial Cells Few /hpf (<5) Urine Amorphous Crystals Mod /hpf (None Seen) Urine Bacteria Few /hpf (None Seen) H Urine Mucus Few (None Seen) Urine Glucose Normal mg/dL (Normal) Microbiology Microbiology Date/Time Source Procedure Growth Status 10/18/24 13:58 Foot Left Gram Stain - Final Resulted 10/18/24 13:58 Foot Left Wound Culture - Preliminary Resulted 10/16/24 01:24 Urine - Catheterized Urine Culture - Final Escherichia coli Enterococcus faecalis Complete 10/15/24 23:00 Blood Blood Culture - Preliminary NO GROWTH AFTER 72 HOURS OF INCUBATION. Resulted Labs and/or images reviewed: Labs reviewed by me Assessment/Plan Assessment/Plan -sepsis -complicated cystitis with E.coli and Enterococcus Faeccallis. -history of MS Plan: Continuing current management. Continuing with IV antibiotic Rocephin. Urine culture show E. Coli and Enterococcus Faeccallis sensitive to rocephin. Repeat urine culture. Continuing with pain medication. Continuing with PPI Discharge planning. This medical document was created using an electronic medical record system with [employer] computerized dictation system. Although this document has been carefully reviewed, there may still be some phonetic and typographical errors. These areas are purely typographical due to imperfections of the software programs, and do not reflect any compromise in the patient's medical care. Plan discussed with: Patient My Orders Orders - CARMITA CERON MD Procedure Category Date Status Time * Lens Assistant CONS 10/19/24 Transmitted Consult Complete Blood Count LAB 10/21/24 Verified 05:00 Basic Metabolic Panel LAB 10/21/24 Verified 05:00 Date of Service: Oct 20, 2024 Billing Provider: CARMITA CERON MD Common Visit Codes: [id number] INP/OBS CARE(HIGH) CARMITA CERON MD Oct 20, 2024 21:05
[2024-10-21] VITALS (8 sets, daily range): BP systolic 109–141; BP diastolic 72–89; PULSE 90–112; RESP 17–18; TEMP 98.2–98.7; O2SAT 95–99
--- NOTE | 2024-10-21 12:03 | DVHPN2 ---
Subjective The patient is seen and examined at bedside. Feel a little bit better. Reviewed: Care Plan, H&P, Labs, Medications, Previous Orders Changes from previous H/P or p: No Changes General: Per HPI Eyes: No Pain, No Vision change, No Conjunctivae inflammation, No Eyelid inflammation, No Other, No Redness ENT: No Ear pain, No Ear discharge, No Nose pain, No Nose discharge, No Nose congestion, No Mouth pain, No Mouth swelling, No Throat pain, No Throat swelling, No Other Cardiovascular: No Chest Pain, No Palpitations, No Orthopnea, No Paroxysmal Noc. Dyspnea, No Edema, No Lt Headedness, No Other Respiratory: No Cough, No Dry, No Shortness of breath, No SOB with excertion, No Wheezing, No Hemoptysis, No Pleuritic Pain, No Sputum, No Other Gastrointestinal: No Nausea, No Vomiting, No Abdominal Pain, No Diarrhea, No Constipation, No Melena, No Hematochezia, No Other Genitourinary: No Dysuria, No Frequency, No Incontinence, No Hematuria, No Retention, No Other Musculoskeletal: No other; neck pain; No shoulder pain, No arm pain, No back pain, No hand pain, No leg pain, No foot pain Skin: No Rash, No Lesions, No Jaundice, No Bruising, No Other Objective Vitals Vital Signs Date Time Temp Pulse Resp B/P (MAP) Pulse Ox O2 Delivery O2 Flow Rate FiO2 10/21/24 08:30 98.6 112 18 125/84 (98) 95 98.6 10/20/24 20:00 Room Air* 0 21 Intake/Output Intake and Output 10/21/24 07:00 Intake Total 600 ml Output Total 975 ml Balance -375 ml Intake Oral 550 ml IV Total 50 ml Output Urine Total 975 ml General Appearance: Alert, Oriented X3, Cooperative, mild distress HEENT: Atraumatic, PERRLA Lungs: Clear to auscultation, Normal air movement Cardiovascular: Normal S1, Normal S2 Abdomen: Normal bowel sounds, Soft, No tenderness, No hepatospenomegaly Musculoskeletal: Normal sensory function, Normal motor function Neuro: Normal speech Skin: Dry, Intact Psych/Mental Status: Mental status NL, Mood NL Medications Current Medications Medications Dose Ordered Sig/Johana Route Start Time Stop Time Status Last Admin Dose Admin Acetaminophen/ Hydrocodone Bitart 1 tab Q4HP PRN PO 10/16/24 08:15 10/21/24 04:34 1 TAB Ondansetron HCl 4 mg Q4HP PRN IV 10/16/24 08:15 Docusate Sodium 100 mg BIDPRN PRN PO 10/16/24 08:15 10/20/24 05:29 100 MG Acetaminophen 650 mg Q6HP PRN PO 10/16/24 08:15 Ceftriaxone Sodium 50 ml @ 100 mls/hr DAILY@09 IV 10/16/24 09:00 10/21/24 09:21 100 MLS/HR Pantoprazole Sodium 40 mg DAILY@0600 PO 10/18/24 06:00 10/21/24 05:40 40 MG Amino Acid Protein 30 ml BID PO 10/19/24 10:00 10/21/24 09:34 30 ML Ascorbic Acid 500 mg BID PO 10/19/24 10:00 10/21/24 09:21 500 MG Enteral Nutritional Formula 240 ml BIDWM PO 10/19/24 18:00 10/21/24 09:34 240 ML Laboratory Results Laboratory Tests 10/20/24 15:26 Chemistry Test 10/20/24 15: Calcium Level 9.4 mg/dL (8.7-10.4) Urinalysis Test 10/16/24 01:24 10/19/24 18:00 Urine Triple Phosphate Crystals Mod /hpf (None Seen) Urine Color Yellow (Yellow) Urine Clarity Ex.turbid (Clear) Urine pH 6.5 (5.0-9.0) Urine Specific [place] 1.027 (1.001-1.035) Urine Protein 1+ (Negative) H Urine Ketones 2+ (Negative) H Urine Blood 2+ /uL (Negative) H Urine Nitrite Negative (Negative) Urine Bilirubin Negative (Negative) Urine Urobilinogen Normal mg/dL (Negative) Urine Leukocyte Esterase 3+ /uL (Negative) Urine RBC 63 /hpf (0 - 4) Urine Microscopic WBC 33 /HPF (0-5) H Urine Squamous Epithelial Cells Few /hpf (<5) Urine Amorphous Crystals Mod /hpf (None Seen) Urine Bacteria Few /hpf (None Seen) H Urine Mucus Few (None Seen) Urine Glucose Normal mg/dL (Normal) Microbiology Microbiology Date/Time Source Procedure Growth Status 10/19/24 18:00 Urine - [place] Urine Culture - Preliminary Resulted 10/18/24 13:58 Foot Left Gram Stain - Final Resulted 10/18/24 13:58 Foot Left Wound Culture - Preliminary Resulted 10/15/24 23:00 Blood Blood Culture - Final NO GROWTH AFTER 5 DAYS OF INCUBATION. Complete Labs and/or images reviewed: Labs reviewed by me Assessment/Plan Assessment/Plan -sepsis -complicated cystitis with E.coli and Enterococcus Faeccallis. -history of MS Plan: Continuing current management. Continuing with IV antibiotic Rocephin. Urine culture show E. Coli and Enterococcus Faeccallis sensitive to rocephin. Repeat urine culture prelim still show > 100,000 colonies possible Enterococcus, will add macrobid 100mg bid. Waiting for final culture. Repeat urine culture. Continuing with pain medication. Continuing with PPI This medical document was created using an electronic medical record system with [employer] direct computerized dictation system. Although this document has been carefully reviewed, there may still be some phonetic and typographical errors. These areas are purely typographical due to imperfections of the software programs, and do not reflect any compromise in the patient's medical care. Plan discussed with: Patient My Orders Orders - CARMITA CERON MD Procedure Category Date Status Time Complete Blood Count LAB 10/21/24 Logged 05:00 Basic Metabolic Panel LAB 10/21/24 Logged 05:00 Nitrofurantoin PHA 10/21/24 Verified Capsule (Macrobid) 22:00 Date of Service: Oct 21, 2024 Billing Provider: CARMITA CERON MD Common Visit Codes: [id number] INP/OBS CARE(HIGH) CARMITA CERON MD Oct 21, 2024 12:03
[2024-10-21 15:38] LABS: Basophils # (auto) 0 10 ^3/uL (0-0.2); Basophils % (auto) 0.3 % (0.0-2.0); Eosinophils # (auto) 0.1 10 ^3/uL (0-0.8); Eosinophils % (auto) 1.6 % (0.0-7.0); Hematocrit 38.7 % (36.0-46.0); Hemoglobin 13.1 g/dL (12.2-16.2); Lymphocytes # (auto) 1.9 10 ^3/uL (0.4-5.4); Lymphocytes % (auto) 23.1 % (10.0-50.0); Mean Corpuscular Hemoglobin 27.7 pg (28.0-32.0); Mean Corpuscular Hgb Conc. 33.7 g/dL (32.0-36.0); Monocytes # (auto) 0.7 10 ^3/uL (0-1.3); Monocytes % (auto) 8.8 % (0.0-12.0); Neutrophils # (auto) 5.5 10 ^3/uL (1.6-8.6); Neutrophils % (auto) 66.2 % (37.0-80.0); Platelet Count (auto) 385 10^3/uL (140-450); Red Blood Cells 4.72 10^6/uL (4.0-5.20); Red Cell Distribution Width 12.6 % (11.8-14.3); White Blood Cell 8.2 10^3/uL (4.4-10.8)
[2024-10-21 15:42] LABS: Chloride 105 mmol/L (98-107); Potassium 3.9 mmol/L (3.5-5.1); Sodium 140 mmol/L (136-145)
[2024-10-21 15:43] LABS: Calcium 9.5 mg/dL (8.7-10.4)
[2024-10-21 15:44] LABS: Anion Gap 8 (5-15); Carbon Dioxide 27 mmol/L (20-31)
[2024-10-21 15:49] LABS: Blood Urea Nitrogen 14 mg/dL (9-23)
[2024-10-21 15:50] LABS: Glucose 138 mg/dL (74-106)
[2024-10-21] MEDS: NITROFURANTOIN 100 mg CAP PO ONE (16:05)
[2024-10-21] MEDS: NITROFURANTOIN 100 mg CAP PO SCH (21:21)
[2024-10-22 01:00] VITALS: BP 112/80; PULSE 120; RESP 17; TEMP 98; O2SAT 98
[2024-10-22 05:00] VITALS: BP 119/77; PULSE 96; RESP 18; TEMP 98; O2SAT 99
[2024-10-22 11:13] LABS: Basophils # (auto) 0 10 ^3/uL (0-0.2); Basophils % (auto) 0.6 % (0.0-2.0); Eosinophils # (auto) 0.1 10 ^3/uL (0-0.8); Eosinophils % (auto) 1.8 % (0.0-7.0); Hematocrit 34.7 % (36.0-46.0); Hemoglobin 12.1 g/dL (12.2-16.2); Lymphocytes # (auto) 2.1 10 ^3/uL (0.4-5.4); Mean Corpuscular Hemoglobin 28.4 pg (28.0-32.0); Mean Corpuscular Hgb Conc. 34.8 g/dL (32.0-36.0); Mean Corpuscular Volume 81.5 fL (80.0-100.0); Monocytes # (auto) 0.5 10 ^3/uL (0-1.3); Monocytes % (auto) 5.6 % (0.0-12.0); Neutrophils # (auto) 5.3 10 ^3/uL (1.6-8.6); Platelet Count (auto) 374 10^3/uL (140-450); Red Blood Cells 4.25 10^6/uL (4.0-5.20); Red Cell Distribution Width 12.8 % (11.8-14.3)
[2024-10-22 11:28] LABS: Anion Gap 8 (5-15); Carbon Dioxide 26 mmol/L (20-31); Chloride 105 mmol/L (98-107); Potassium 4.2 mmol/L (3.5-5.1); Sodium 139 mmol/L (136-145)
[2024-10-22 11:29] LABS: Calcium 9.5 mg/dL (8.7-10.4)
[2024-10-22 11:33] LABS: Glucose 96 mg/dL (74-106)
[2024-10-22 11:34] LABS: BUN/Creatinine Ratio 21.8 (10.0-20.0); Blood Urea Nitrogen 12 mg/dL (9-23)
[2024-10-22 13:00] VITALS: BP 114/72; PULSE 97; RESP 17; TEMP 98.1; O2SAT 97
[2024-10-22] MEDS ORDERED: NITR50CA24 PO (14:51)
[2024-10-22] MEDS ORDERED: CEPH250C PO ×2 (14:51→17:00)
--- NOTE | 2024-10-22 14:53 | DVHDS2 ---
Discharge Summary Date of Admission Oct 16, 2024 at 08:15 Date of Discharge: Oct 22, 2024 Labs/Diagnostic Data: Laboratory Results Test 10/22/24 10:42 10/19/24 18:00 10/17/24 05:43 10/16/24 01:24 White Blood Count 8.0 10^3/uL (4.4-10.8) Red Blood Count 4.25 10^6/uL (4.0-5.20) Hemoglobin 12.1 g/dL (12.2-16.2) Hematocrit 34.7 % (36.0-46.0) Mean Corpuscular Volume 81.5 fL (80.0-100.0) Mean Corpuscular Hemoglobin 28.4 pg (28.0-32.0) Mean Corpuscular Hemoglobin Concent 34.8 g/dL (32.0-36.0) Red Cell Distribution Width 12.8 % (11.8-14.3) Platelet Count 374 10^3/uL (140-450) Mean Platelet Volume 7.0 fL (6.9-10.8) Neutrophils (%) (Auto) 66.0 % (37.0-80.0) Lymphocytes (%) (Auto) 26.0 % (10.0-50.0) Monocytes (%) (Auto) 5.6 % (0.0-12.0) Eosinophils (%) (Auto) 1.8 % (0.0-7.0) Basophils (%) (Auto) 0.6 % (0.0-2.0) Neutrophils # (Auto) 5.3 10 ^3/uL (1.6-8.6) Lymphocytes # (Auto) 2.1 10 ^3/uL (0.4-5.4) Monocytes # (Auto) 0.5 10 ^3/uL (0-1.3) Eosinophils # (Auto) 0.1 10 ^3/uL (0-0.8) Basophils # (Auto) 0 10 ^3/uL (0-0.2) Nucleated Red Blood Cells 0.0 % Sodium Level 139 mmol/L (136-145) Potassium Level 4.2 mmol/L (3.5-5.1) Chloride Level 105 mmol/L (98-107) Carbon Dioxide Level 26 mmol/L (20-31) Anion Gap 8 (5-15) Blood Urea Nitrogen 12 mg/dL (9-23) Creatinine 0.55 mg/dL (0.550-1.02) Glomerular Filtration Rate Calc 126 mL/min (>90) BUN/Creatinine Ratio 21.8 (10.0-20.0) Serum Glucose 96 mg/dL (74-106) Calcium Level 9.5 mg/dL (8.7-10.4) Urine Color Yellow (Yellow) Urine Clarity Ex.turbid (Clear) Urine pH 6.5 (5.0-9.0) Urine Specific [place] 1.027 (1.001-1.035) Urine Protein 1+ (Negative) Urine Ketones 2+ (Negative) Urine Blood 2+ /uL (Negative) Urine Nitrite Negative (Negative) Urine Bilirubin Negative (Negative) Urine Urobilinogen Normal mg/dL (Negative) Urine Leukocyte Esterase 3+ /uL (Negative) Urine RBC 63 /hpf (0 - 4) Urine Microscopic WBC 33 /HPF (0-5) Urine Squamous Epithelial Cells Few /hpf (<5) Urine Amorphous Crystals Mod /hpf (None Seen) Urine Bacteria Few /hpf (None Seen) Urine Mucus Few (None Seen) Urine Glucose Normal mg/dL (Normal) Total Bilirubin 0.5 mg/dL (0.2-1.0) Aspartate Amino Transferase (AST) 19 U/L (13-40) Alanine Aminotransferase (ALT) 11 U/L (7-40) Alkaline Phosphatase 60 U/L (46-116) Total Protein 5.8 g/dL (5.7-8.2) Albumin 3.7 g/dL (3.2-4.8) Urine Triple Phosphate Crystals Mod /hpf (None Seen) Test 10/15/24 22:55 Lactic Acid Level 1.0 mmol/L (0.4-2.0) Other Laboratory Tests 10/22/24 10:42 Discharge Disposition: Home Discharge Instruct/Medications Diet: Cardiac 2g Na,low cholest Activity: No Restrictions, As Tolerated Discharge Statement: "Patient was advised to return to the ER or call 911 if any headaches, dizziness, shortness of breath, chest pain, abdominal pain, bleeding, fevers, or worsening of medical condition. Patient was counseled about treatment plan, medications, possible side effects, patientverbalized understanding. All questions were answered to the best of my ability. This discharge took greater then 30 minutes in planning, reviewing documentation, counseling the patient, and discussing with other team members." ASSESSMENT ASSESSMENT Assessment Date of Service: Oct 22, 2024 Billing Provider: JENNA RAIN DO Common Visit Codes: [id number] DISCH DAY >30min JENNA RAIN DO Oct 22, 2024 14:52
[2024-10-22 16:05] VITALS: BP 110/68; PULSE 74; RESP 14; TEMP 98; O2SAT 95
[2024-10-22 16:45] VITALS: BP 115/77; PULSE 112; RESP 19; TEMP 98.3; O2SAT 94
[2024-10-22] MEDS ORDERED: NITR-87 PO (17:00)
[2024-10-22 21:00] VITALS: BP 123/79; PULSE 100; RESP 16; TEMP 98; O2SAT 97
[2024-10-23 01:00] VITALS: BP 127/83; PULSE 89; RESP 18; TEMP 97.8; O2SAT 99
[2024-10-23 05:00] VITALS: BP 129/80; PULSE 105; RESP 18; TEMP 98.3; O2SAT 97
[2024-10-23 07:35] VITALS: BP 124/70; PULSE 98; RESP 20; TEMP 98; O2SAT 99
[2024-10-23 13:00] VITALS: BP 122/82; PULSE 90; RESP 20; TEMP 98.3; O2SAT 98
[2024-10-23 16:27] VITALS: BP 123/79; PULSE 103; RESP 20; TEMP 98; O2SAT 98
--- NOTE | 2024-10-23 20:53 | DVHPN2 ---
Reviewed: Care Plan, H&P, Labs, Medications, Previous Orders Changes from previous H/P or p: No Changes General: Per HPI Eyes: No Pain, No Vision change, No Conjunctivae inflammation, No Eyelid inflammation, No Other, No Redness ENT: No Ear pain, No Ear discharge, No Nose pain, No Nose discharge, No Nose congestion, No Mouth pain, No Mouth swelling, No Throat pain, No Throat swelling, No Other Cardiovascular: No Chest Pain, No Palpitations, No Orthopnea, No Paroxysmal Noc. Dyspnea, No Edema, No Lt Headedness, No Other Respiratory: No Cough, No Dry, No Shortness of breath, No SOB with excertion, No Wheezing, No Hemoptysis, No Pleuritic Pain, No Sputum, No Other Gastrointestinal: No Nausea, No Vomiting, No Abdominal Pain, No Diarrhea, No Constipation, No Melena, No Hematochezia, No Other Genitourinary: No Dysuria, No Frequency, No Incontinence, No Hematuria, No Retention, No Other Musculoskeletal: No other; neck pain; No shoulder pain, No arm pain, No back pain, No hand pain, No leg pain, No foot pain Skin: No Rash, No Lesions, No Jaundice, No Bruising, No Other Objective Vitals Vital Signs Date Time Temp Pulse Resp B/P (MAP) Pulse Ox O2 Delivery O2 Flow Rate FiO2 10/23/24 16:27 98.0 103 20 123/79 (94) 98 98.0 10/23/24 08:00 Room Air* 0 21 Intake/Output Intake and Output 10/23/24 07:00 Intake Total 1250 ml Output Total 650 ml Balance 600 ml Intake Oral 1200 ml IV Total 50 ml Output Urine Total 650 ml General Appearance: Alert, Oriented X3, Cooperative, mild distress HEENT: Atraumatic, PERRLA Lungs: Clear to auscultation, Normal air movement Cardiovascular: Normal S1, Normal S2 Abdomen: Normal bowel sounds, Soft, No tenderness, No hepatospenomegaly Musculoskeletal: Normal sensory function, Normal motor function Neuro: Normal speech Skin: Dry, Intact Psych/Mental Status: Mental status NL, Mood NL Medications Current Medications Medications Dose Ordered Sig/Johana Route Start Time Stop Time Status Last Admin Dose Admin Acetaminophen/ Hydrocodone Bitart 1 tab Q4HP PRN PO 10/16/24 08:15 10/22/24 23:48 1 TAB Ondansetron HCl 4 mg Q4HP PRN IV 10/16/24 08:15 Docusate Sodium 100 mg BIDPRN PRN PO 10/16/24 08:15 10/22/24 18:48 100 MG Acetaminophen 650 mg Q6HP PRN PO 10/16/24 08:15 Ceftriaxone Sodium 50 ml @ 100 mls/hr DAILY@09 IV 10/16/24 09:00 10/23/24 09:45 100 MLS/HR Pantoprazole Sodium 40 mg DAILY@0600 PO 10/18/24 06:00 10/23/24 07:06 40 MG Amino Acid Protein 30 ml BID PO 10/19/24 10:00 10/22/24 22:00 30 ML Ascorbic Acid 500 mg BID PO 10/19/24 10:00 10/23/24 09:44 500 MG Enteral Nutritional Formula 240 ml BIDWM PO 10/19/24 18:00 10/23/24 18:49 240 ML Nitrofurantoin Macrocrystals 100 mg BID PO 10/21/24 22:00 11/04/24 21:59 10/23/24 09:45 100 MG Laboratory Results Laboratory Tests 10/22/24 10:42 Urinalysis Test 10/16/24 01:24 10/19/24 18:00 Urine Triple Phosphate Crystals Mod /hpf (None Seen) Urine Color Yellow (Yellow) Urine Clarity Ex.turbid (Clear) Urine pH 6.5 (5.0-9.0) Urine Specific [place] 1.027 (1.001-1.035) Urine Protein 1+ (Negative) H Urine Ketones 2+ (Negative) H Urine Blood 2+ /uL (Negative) H Urine Nitrite Negative (Negative) Urine Bilirubin Negative (Negative) Urine Urobilinogen Normal mg/dL (Negative) Urine Leukocyte Esterase 3+ /uL (Negative) Urine RBC 63 /hpf (0 - 4) Urine Microscopic WBC 33 /HPF (0-5) H Urine Squamous Epithelial Cells Few /hpf (<5) Urine Amorphous Crystals Mod /hpf (None Seen) Urine Bacteria Few /hpf (None Seen) H Urine Mucus Few (None Seen) Urine Glucose Normal mg/dL (Normal) Microbiology Microbiology Date/Time Source Procedure Growth Status 10/19/24 18:00 Urine - [place] Urine Culture - Final Enterococcus faecalis Complete 10/18/24 13:58 Foot Left Gram Stain - Final Complete 10/18/24 13:58 Foot Left Wound Culture - Final Complete 10/15/24 23:00 Blood Blood Culture - Final NO GROWTH AFTER 5 DAYS OF INCUBATION. Complete Assessment/Plan My Orders Orders - JENNA RAIN DO Procedure Category Date Status Time * Clinical Laboratory Manager CONS 10/23/24 Transmitted Consult Date of Service: Oct 23, 2024 Billing Provider: JENNA RAIN DO Common Visit Codes: [id number] INP/OBS CARE(HIGH) JENNA RAIN DO Oct 23, 2024 20:53
== END 2024-10-23 19:34 | disposition home or self-care (01) | DRG 872 ==
LOC: EDBD 21:49 → ER 21:49 → OVERFLOW 10-16 08:15 → WEST WING 10-16 20:21 → CENTRAL 10-18 18:51
PROVIDERS: ADMIT Internal Medicine; ATTEND Internal Medicine
DX: A41.51 Sepsis due to Escherichia coli [E. coli] (principal); N30.90 Cystitis, unspecified without hematuria; G35 Multiple sclerosis; M54.2 Cervicalgia; A41.81 Sepsis due to Enterococcus; Z99.3 Dependence on wheelchair
CPT/HCPCS: 36415; 71045; 76775; 80048; 80053; 81001; 83605; 85025; 87040; 87086; 87088; 87186; 87205; 96365; 97110; 97163; G0378; J0692; J1885